=== PATIENT | female | born 1950 | race Caucasian/White ===

== ENCOUNTER 2016-12-18 06:41 | Day surgery (SDC) | payer MEDICARE, OTHER ==
[2016-12-10 13:20] VITALS: BMI 33.8
[2016-12-18] VITALS (10 sets, daily range): BP systolic 113–151; BP diastolic 48–77; PULSE 70–88; RESP 10–19; Ht 144.8 cm; Wt 70.4 kg
[~2016-12-18] VITALS: Ht 144.8 cm; Wt 70.4 kg
[~2016-12-18 06:41] MED LIST: ATOR20TA38 PO; CEFAZOLIN 2 GM/50 ML (PMX) 50 ML IVPB SCH; LOSA50TA6 PO; SOD CHLORIDE 0.9% 1,000 ML IV SCH
[2016-12-18 07:47] LABS: BASOPHIL # 0.1 10^3/ul (0.0-0.1); EOSINOPHILS # 0.2 10^3/ul (0.0-0.5); EOSINOPHILS % 2.6 % (0.0-7.0); HEMATOCRIT 41.8 % (37.0-47.0); HEMOGLOBIN 13.6 g/dl (12.0-16.0); LYMPHOCYTES # 2.2 10^3/ul (0.8-2.9); LYMPHOCYTES % 34.8 % (15.0-51.0); MEAN CORPUSCULAR HEMOGLOBIN 29.6 pg (29.0-33.0); MEAN CORPUSCULAR HGB CONC 32.5 g/dl (32.0-37.0); MEAN CORPUSCULAR VOLUME 91.1 fl (82.0-101.0); MEAN PLATELET VOLUME 10.5 fl (7.4-10.4); MONOCYTE # 0.6 10^3/ul (0.3-0.9); MONOCYTES % 9.4 % (0.0-11.0); NEUTROPHIL # 3.2 10^3/ul (1.6-7.5); NEUTROPHILS % 51.9 % (39.0-77.0); PLATELET COUNT 306 10^3/UL (140-415); RED BLOOD COUNT 4.59 10^6/ul (4.20-5.40); WHITE BLOOD COUNT 6.2 10^3/ul (4.8-10.8)
[2016-12-18] MEDS ORDERED: LIDOCAINE 2% (MDV) 20 ML INJ ONE (07:49)
[2016-12-18] MEDS ORDERED: BUPIVACAINE 0.5% (SDV) 30 ML INJ ONE (07:49)
[2016-12-18] MEDS ORDERED: FENTAnyl 50 MCG/ML VIAL ONE (07:50)
[2016-12-18] MEDS ORDERED: LIDOCAINE 2% (SDV) 5 ML INJ ONE (07:50)
[2016-12-18] MEDS ORDERED: MIDAZOLAM 1 MG/ML 2 ML INJ ONE (07:50)
[2016-12-18] MEDS ORDERED: PROPOFOL 20 ML ONE (07:50)
[2016-12-18] MEDS ORDERED: hydrALAzine 20 MG INJ IV PRN (08:00)
[2016-12-18] MEDS ORDERED: DIPHENHYDRAMINE 50 MG INJ IV PRN (08:00)
[2016-12-18] MEDS ORDERED: OXYCODONE/ACETAMINOPHEN (5/325) TAB PO PRN ×2 (08:00)
[2016-12-18] MEDS ORDERED: MEPERIDINE 25 MG INJ IV PRN (08:00)
[2016-12-18] MEDS ORDERED: KETOROLAC 30 MG INJ IV PRN (08:00)
[2016-12-18] MEDS ORDERED: ONDANSETRON 4 MG INJ IV PRN (08:00)
[2016-12-18] MEDS ORDERED: PROCHLORPERAZINE 10 MG INJ IV PRN (08:00)
[2016-12-18] MEDS ORDERED: FENTAnyl 50 MCG/ML VIAL IV PRN (08:00)
[2016-12-18] MEDS ORDERED: LABETALOL HCL 20MG INJ IV PRN (08:00)
[2016-12-18] MEDS ORDERED: CEFAZOLIN 1 GM INJ ONE (08:21)
[2016-12-18] MEDS ORDERED: METOCLOPRAMIDE 10 MG INJ ONE (08:21)
[2016-12-18] MEDS ORDERED: ONDANSETRON 4 MG INJ ONE (08:21)
[2016-12-18] MEDS ORDERED: EPHEDrine SULFATE 50 MG/5 ML SYG ONE (08:29)
--- NOTE | 2016-12-18 08:38 | SIPON ---
Date/Time of Note Date/Time of Note DATE: 12/18/16 TIME: 08:37 Operative Report Preoperative Diagnosis back mass Postoperative Diagnosis back mass Operation/Procedure Performed 1. excision of upper back mass 4 cm incision 4 cm mass 2. localized adjacent tissue transfer with the use of skin flaps 8 sq cm defect 3. therapeutic injection of subcutaneous marcaine cpt code 94360 Surgeon see signature line histology assistant none Anesthesia: MAC Estimated blood loss: minimal Transfusion Required none Specimen upper back mass Grafts/Implants none Complications none Homar JASON Dec 18, 2016 08:38
[2016-12-18] MEDS ORDERED: ACETAMINOPHEN 325 MG TAB PO ONE (09:00)
--- NOTE | 2016-12-18 09:29 | OPR ---
DATE OF OPERATION: 12/18/2016 INDICATION: This is a 66-year-old female with a back mass. She requests surgical excision. Risks, alternatives, benefits, and personnel were discussed with the patient. Patient expresses understanding and consents to the operation. PREOPERATIVE DIAGNOSIS: Back mass. POSTOPERATIVE DIAGNOSIS: Back mass. PROCEDURES: 1. Excision of upper back mass with 4 cm size incision and 4 x 2 cm size mass. 2. Localized adjacent tissue transfer with use of skin flaps of 8 square cm defect. 3. Therapeutic subcutaneous Marcaine injection. SURGEON: Dr. Nathaly Ledezma. SPECIMEN: Upper back mass. COMPLICATIONS: None. ESTIMATED BLOOD LOSS: Minimal. PROCEDURE: The patient was taken to the OR, prepped and draped in usual sterile fashion. Surgical timeout was performed. IV antibiotics were given. Subcutaneous therapeutic local anesthesia is injected throughout the incision site. Elliptical incision is made over the mass. Dissection cautery was carried down to the mass and circumferentially excised. Due to the tissue defect that is left localized adjacent tissue transfer with use of skin flaps was performed. Multilayered closure with interrupted 3-0 Vicryl and skin jem. Additional therapeutic subcutaneous Marcaine and lidocaine mixture was injected throughout the incision. Dry dressings were applied. Dictated By: [facility] /[email or web address]/rm /Document#: [id number]
== END 2016-12-18 09:45 | disposition home or self-care (01) ==
LOC: SDS 06:41
PROVIDERS: ATTEND Surgery
DX: L72.0 Epidermal cyst (principal); I10 Essential (primary) hypertension; E78.5 Hyperlipidemia, unspecified
CPT/HCPCS: 14000; 85025; 88307; J0690; J2250; J2405; J2765; J3010